=== PATIENT | female | born 1995 | race Caucasian/White ===

== ENCOUNTER 2016-12-01 14:45 | Emergency (ER) | payer OTHER ==
[2016-12-01 15:12] VITALS: BP 126/94; PULSE 87; TEMP 98; BMI 35.8
--- NOTE | 2016-12-01 16:22 | PDOC ---
[id number] 4d back pain Time Seen by Provider: 12/01/16 16:03 History Source: Patient Exam Limitations: No Limitations - History of Present Illness Initial Comments: 12/01/16 16:14 My Chief Complaint: lower back pain, cough for few days, sore throat, requesting test History of Present Illness: She is a 21-year-old female with a history of bipolar disorder here today complaining of cough for a few days productive patient spit out some clear colored phlegm in exam room in patient also complaining of sore throat and just feeling "big like I did when I was with my son". She reports that she was admitted to [facility] on 11/29/16 and discharged to 11/30/2016. Patient states that "I am going to [facility] them I am and they gave me a shot of Prolixin. Patient reports that she's had lower back pain for a few weeks. She denies any radiation of pain down the legs. She denies any incontinency or any saddle anesthesia or any numbness of legs. Patient reports that for the past few days she has had slight dysuria. She denies any vaginal discharge. Patient denies any hematuria has slight frequency no urgency. She denies any injuries to her lower back. He reports that her last menstrual cycle was in September,. Patient reports that she has unprotected sex in the park at [place] with the same partner. Patient denies any nausea or vomiting or any fever. Pt. denies any shortness of breath or difficulty wheezing or swallowing. She denies any nausea vomiting or fever. 12/01/16 16:49 12/01/16 16:57 12/01/16 16:58 12/01/16 16:59 12/01/16 17:12 12/01/16 17:25 12/01/16 17:36 12/02/16 15:08 12/02/16 15:10 Pain Location: reports: back Method of Injury: Yes: unknown Modifying Factors: improves with: None Loss of Consciousness: no loss of consciousness Associated Symptoms (Fall): other (cough and sore throat) Past History - Past Medical History Allergies/Adverse Reactions: Allergies Allergy/AdvReac Type Severity Reaction Status Date / Time fluoxetine HCl [From Prozac] Allergy Unknown Verified 12/01/16 15:06 Home Medications: Ambulatory Orders Doxycycline Hyclate [Vibramycin -] 100 mg PO BID #28 cap 12/01/16 Nitrofurantoin Monohyd/M-Cryst [Macrobid -] 100 mg PO BID #14 capsule 12/01/16 Asthma: No Cancer: No Cardiac Disorders: No Diabetes: No HTN: No Psychiatric Problems: Yes (BIPOLAR,SCHIZOPHRENIA) Seizures: No Thyroid Disease: No - Immunization History Immunization Up to Date: No - Psycho/Social/Smoking Cessation Hx Anxiety: No Suicidal Ideation: No Smoking History: Former smoker Have you smoked in the past 12 months: Yes Number of Cigarettes Smoked Daily: 20 Information on smoking cessation initiated: No Hx Alcohol Use: No Drug/Substance Use Hx: No Substance Use Type: None Hx Substance Use Treatment: No Review of Systems - Review of Systems Able to Perform ROS?: Yes Constitutional: No: Symptoms Reported HEENTM: Yes: Throat Pain (slight ) Respiratory: Yes: Productive cough (clear for few days ). No: Cough, Shortness of Breath, SOB with Exertion, SOB at Rest, Stridor, Wheezing Cardiac (ROS): No: Symptoms Reported ABD/GI: No: Symptoms Reported : Yes: Dysuria, Frequency. No: Discharge, Flank Pain, Hematuria, Incontinence , Pain Musculoskeletal: Yes: Back Pain (without radiation down legs) Integumentary: Yes: Bruising (rt. knee quarter size ) Neurological: No: Symptoms reported Psychiatric: Yes: Emotional Problems, Mood Swings, Change in Appetite *Physical Exam - Vital Signs Last Vital Signs Temp Pulse Resp BP Pulse Ox 98 F 87 19 126/94 97 12/01/16 15:06 12/01/16 15:06 12/01/16 15:06 12/01/16 15:06 12/01/16 15:06 - Physical Exam General Appearance: Yes: Appropriately Dressed HEENT: positive: Normal ENT Inspection Neck: negative: Lymphadenopathy (R), Lymphadenopathy (L) Respiratory/Chest: positive: Lungs Clear, Normal Breath Sounds. negative: Chest Tender, Respiratory Distress Cardiovascular: positive: Regular Rhythm, Regular Rate, S1, S2 Female Pelvic Exam: positive: normal external exam, cervical os closed (friable with erosions), CMT, discharge (grayish white discharge thin) Gastrointestinal/Abdominal: positive: Normal Bowel Sounds, Soft. negative: Tender, Organomegaly, Distended, Guarding, Rebound, Tenderness, Hepatomegaly, Spleenomegaly Musculoskeletal: positive: Normal Inspection. negative: CVA Tenderness, CVA Tenderness (R), CVA Tenderness (L), Decreased Range of Motion Extremity: positive: Normal Capillary Refill, Normal Inspection, Normal Range of Motion Integumentary: positive: Ecchymosis (quarter size area rt. knee) Neurologic: positive: Alert, Normal Response, Motor Strength 5/5 (legs ), Responsive, Other (negative SLR b/l ). negative: Respond to painful stimul ( legs ), Numbness, Sensory Deficit (legs ) Deep Tendon Reflexes: Knee (L): 4+, Knee (R): 4+ Medical Decision Making - Medical Decision Making 12/01/16 17:12 12/01/16 17:12 She is a 21-year-old female with a history of bipolar disorder here today complaining of cough for a few days productive patient spit out some clear colored phlegm in exam room in patient also complaining of sore throat and just feeling "big like I did when I was with my son". She reports that she was admitted to [facility] on 11/29/16 and discharged to 11/30/2016. Patient states that "I am going to [facility] them I am and they gave me a shot of Prolixin. Patient reports that she's had lower back pain for a few weeks. She denies any radiation of pain down the legs. She denies any incontinency or any saddle anesthesia or any numbness of legs. Patient reports that for the past few days she has had slight dysuria. She denies any vaginal discharge. Patient denies any hematuria has slight frequency no urgency. She denies any injuries to her lower back. He reports that her last menstrual cycle was in September,. Patient reports that she has unprotected sex [place] the park at [place] with the same partner. Patient denies any nausea or vomiting or any fever. Pt. denies any shortness of breath or difficulty wheezing or swallowing. She denies any nausea vomiting or fever. Pt. does not use protection with sexual relations 12/01/16 17:37 r/o STD r/o UTI unprotected sex pelvic inflammatory d/o r/o influenza A or B PLAN: Urinalysis inflluenza A or B negative Urine C and S Urine hCG negative Chlamydia/gonorrhea amplification genital culture rocephin 250 mg IM doxycycline 100 mg bid for 14 days macrobid 100 mg bid for 7 days Laboratory Tests 12/01/16 12/01/16 16:27 16:27 Urine Color Straw Urine Appearance Slcloudy Urine pH 7.0 Ur Specific [place] 1.009 Urine Protein Negative Urine Glucose (UA) Negative Urine Ketones Negative Urine Blood 1+ H Urine Nitrite Negative Urine Bilirubin Negative Urine Urobilinogen Negative Ur Leukocyte Esterase 3+ H Urine HCG, Qual Negative 12/01/16 18:09 12/02/16 15:10 12/02/16 15:11 12/02/16 15:12 *DC/Admit/Observation/Transfer Diagnosis at time of Disposition: Pelvic inflammation in female Urinary tract infection Qualifiers: Urinary tract infection type: acute cystitis Hematuria presence: with hematuria Qualified Code(s): N30.01 - Acute cystitis with hematuria - Discharge Dispostion Disposition: HOME Condition at time of disposition: Stable - Prescriptions Prescriptions: Nitrofurantoin Monohyd/M-Cryst [Macrobid -] 100 mg PO BID #14 capsule Doxycycline Hyclate [Vibramycin -] 100 mg PO BID #28 cap - Referrals Referrals: Jaimie Fuentes MD [Primary Care Provider] - - Patient Instructions Additional Instructions: Her test was negative today as noted per urine test and serum test Must follow up with your athletic instructor as soon as possible for further evaluation Drink a lot of fluids Refrain from sexual relations for 2 weeks Use condoms to protect yourself from sleep sexually transmitted diseases Call you if you will need further treatment pending lab said will not be resulted today Return to emergency room if any fever nausea or vomiting She voiced understanding of discharge instructions and all questions were answered
[2016-12-01] MEDS ORDERED: ACETAMINOPHEN 500 MG TABLET (FP) PO ONE (16:48)
[2016-12-01 16:57] LABS: URINE APPEARANCE SLCLOUDY; URINE BILIRUBIN NEGATIVE (NEGATIVE); URINE COLOR STRAW; URINE GLUCOSE (UA) NEGATIVE (NEGATIVE); URINE KETONE NEGATIVE (NEGATIVE); URINE NITRITE NEGATIVE (NEGATIVE); URINE PROTEIN NEGATIVE (NEGATIVE); URINE UROBILINOGEN NEGATIVE E.U./dl (0.2-1.0)
[2016-12-01 17:01] LABS: URINE BLOOD 1+ (NEGATIVE); URINE LEUK ESTERASE 3+ (NEGATIVE)
[2016-12-01] MEDS ORDERED: ACETAMINOPHEN 500 MG TABLET (FP) ONE (17:01)
[2016-12-01 17:52] LABS: URINE BACTERIA RARE /hpf (NONE SEEN); URINE MUCUS RARE; URINE RBC 3 /hpf (0-3); URINE WBC 27 /hpf (3-5)
== END 2016-12-01 18:55 | disposition home or self-care (01) ==
LOC: JERFT 14:45
DX: N73.9 Female pelvic inflammatory disease, unspecified (principal); N30.01 Acute cystitis with hematuria
CPT/HCPCS: 36415; 81003; 81015; 84703; 86593; 87070; 87186; 87205; 87491; 87591; 87804; 96372; 99281-25